=== PATIENT | male | born 1990 ===

== ENCOUNTER 2025-02-12 14:33 | Outpatient (AMB) | payer OTHER, SELFPAY ==
--- NOTE | 2025-02-12 14:41 | MHC.PC.OV ---
Vital Signs 02/12/25 14:42 Height 5 ft 9.25 in Weight 222 lb 6.4 oz BMI 32.6 BP 124/76 Blood Pressure Location Lt brachial Position Sitting Respiration 16 Pulse 92 Pulse Source Pulse Oximeter Temp 97.4 F Temp Source Oral Pulse Oximetry (%) 97 Oxygen Delivery Method Room Air Intake Visit Reasons: establish care Intake Note: Patient is a new patient here to establish care. Patient reports that he had no previous primary care physician; sought medical care at urgent care facility, when necessary. Medical records have not been requested and have not been received. Enchilada Maker Required: No Accompanied by: Spouse Allergies No Known Allergies Allergy (Verified 02/12/25 15:04) Medication List - Last Reconciled 02/12/25 by MARY Whitaker multivitamin 1 tab PO DAILY omega 7-vsx-vwr-fish oil 1,000 (120-180) mg (Fish Oil) 1 cap PO DAILY Tobacco use date assessed: 02/12/25 Dental Screening Dental Screen Date: 02/12/25 Did you have a dental visit in the last 12 months?: No Did you have a dental problem in the last 6 months where you did not have access to dental care?: No Was dental information given to patient?: Patient has dentist HPI establish care HPI Details The patient has a 34-year-old male presenting to establish care Previous PCP: None Last visit: urgent care, October-wheezing/respiratory illness Last PE:n/a Specialist: no OBGYN:n/a Past medical history: allergies, URI Medications: Family HX: mother asthma, Problem: Patient reports intermittent allergy/respiratory type symptoms Reports sneezing/coughing/wheezing/intermittent shortness of breath Reports going to urgent care and obtaining an rescue inhaler, Flonase nose spray, benzonatate, and Z-Portillo with positive effects Patient is presenting with partner who is concerned that the patient might have asthma or some form of allergies The patient is constantly clearing his throat and nostrils The patient is denying shortness of breath, chest pain, heart palpitation or dizziness He is denying abdominal pain/nausea or vomiting-reports on and off constipation History of hemorrhoids noted during colonoscopy Denies urinary symptoms PFSH Medical History Hemorrhoids Asthma Surgical History Hx of colonoscopy No pertinent past surgical history Family History Mother Asthma Social History Household Members: Spouse Housing: Apartment Alcohol intake: current Alcohol intake frequency: a few times a month Patient Tobacco Use Status: Never used Tobacco e-Cigarette/Vaping Use: Never Used service: No Current occupational status: employed Current occupation: Home improvement Cognitive needs: No Hearing needs: No Vision needs: No Questionnaire PHQ-9 Over the last 2 weeks, how often have you been bothered by any of the following problems? 1. Little interest or pleasure in doing things: more than half the days 2. Feeling down, depressed, or hopeless: not at all 3. Trouble falling or staying asleep, or sleeping too much: not at all 4. Feeling tired or having little energy: not at all 5. Poor appetite or overeating: not at all 6. Feeling bad about yourself - or that you are a failure or have let yourself or your family down: not at all 7. Trouble concentrating on things, such as reading the newspaper or watching television: not at all 8. Moving or speaking so slowly that other people could have noticed. Or the opposite - being so fidgety or restless that you have been moving around a lot more than usual: not at all 9. Thoughts that you would be better off or of hurting yourself in some way: not at all Total score: 2 Depression Screening Interpretation: Negative Depression Screening Done: Yes 78942 - PHQ-9 Billing: Yes Source: Developed by Drs. Jb Arias, Evon Nava, Ezio Patel and colleagues, with an educational ricardo from [employer]. Thrive Questionnaire Date Thrive assessed: 02/12/25 I am a: Patient What is your living situation today?: I have a steady place to live Within the past 12 months, did the food you bought not last and you didn't have the money to get more?: Never true Within the past 12 months, did you worry whether your food would run out before you got money to buy more?: Never true Do you have trouble paying for medicines?: No Do you have trouble getting transportation to medical appointments?: No Do you have trouble paying your heating and electricity bill?: No Do you have trouble taking care of your child, family member or friend?: No Do you have trouble with day-to-day activities such as bathing, preparing meals, shopping, managing finances, etc.?: No Are you currently unemployed and looking for a job?: Yes Are you interested in more education?: No Please select the resources that you would like help with: None Currently or been in a relationship where the following occur: No concerns reported THRIVE Score: 0 AUDIT C Alcohol Use Questionnaire (AUDIT-C) 1. How often do you have a drink containing alcohol?: Monthly or less 2. How many drinks containing alcohol do you have on a typical day when you are drinking?: 1 or 2 3. How often do you have six or more drinks on one occasion?: Never Total Score: 1 Score Reviewed/Action Taken: No SHELBY-7 AMB Questionnaire SHELBY-7 Date SHELBY - 7 assessed: 02/12/25 Feeling nervous, anxious, or on edge: 0 = Not at all Not being able to stop or control worryin = Not at all Worrying too much about different things: 0 = Not at all Trouble relaxin = Not at all Being so restless that it is hard to sit still: 0 = Not at all Becoming easily annoyed or irritable: 0 = Not at all Feeling afraid as if something awful might happen: 0 = Not at all Total SHELBY-7 score (0-4 normal; 5-9 mild; 10-14 moderate; 15-21 severe): 0 Source: Developed by Drs. Jb Arias, Evon Nava, Ezio Patel and colleagues, with an educational ricardo from [employer]. SHELBY-7 Assessment Billing SHELBY-7 Assessment Tool: SHELBY-7 Assessment 63937 Review of Systems Const Denies headache(s) Eyes Denies loss of vision ENT Denies vertigo, Denies dizziness, Denies headache(s) and Denies sore throat Card Denies chest pain, Denies leg edema and Denies lightheadedness Resp Denies cough, Denies hemoptysis and Denies wheezing GI Denies abdominal pain, Denies melena, Reports constipation, Denies diarrhea and Denies vomiting Denies dysuria, Denies urinary frequency and Denies urinary urgency Musc Denies arthralgias, Denies joint swelling, Denies numbness and Denies tingling Neuro Denies Abnormal speech present, Denies vertigo, Denies dizziness, Denies headache(s), Denies loss of vision, Denies numbness and Denies tingling Vinny/Lymph Denies easy bleeding and Denies easy bruising Aller/Immun Denies wheezing Physical exam (Primary Care) Vital Signs: Last Vital Signs Temp 97.4 F 02/12/25 14:42 Pulse 92 02/12/25 14:42 Resp 16 02/12/25 14:42 BP 124/76 02/12/25 14:42 Pulse Ox 97 02/12/25 14:42 Oxygen Delivery Method Room Air 02/12/25 14:42 BMI result Body Mass Index 32.6 Tobacco/Smoking Status: Tobacco use Status Tobacco use date assessed 02/12/25 02/12/25 15:00 Patient Tobacco Use Status Never used Tobacco 02/12/25 15:00 Tobacco use type 02/12/25 15:00 e-Cigarette/Vaping Use Never Used 02/12/25 15:00 PHQ-9: PHQ-9 Score PHQ-9: Total score 2 02/12/25 15:34 Depression Screening Interpretation: Negative Thrive Assessment: Date of Thrive Assessment Date Thrive assessed 02/12/25 02/12/25 14:45 Currently or been in a relationship where the following occur: No concerns reported Const General: healthy appearing, no acute distress, alert and awake Nutritional Appearance: well nourished Orientation/consciousness: oriented to person, oriented to place and oriented to time [facility] Ears: TM's normal bilaterally General nose exam: Abnormal mucous membranes and turbinates present and Nasal discharge present clear bilateral Throat: Yes posterior oropharynx normal Eyes Conjunctivae: conjunctivae normal Sclerae: sclerae normal Pupils: Equal, round and reactive pupils present Neck Neck: Yes no lymphadenopathy and Yes no JVD Thyroid: Thyroid normal Carotids: no bruits Resp Effort & Inspection: normal respiratory effort and not tachypneic Auscultation: no crackles, no rales, no rhonchi and no wheezes Cardio Rate: regular rate Rhythm: regular rhythm Heart sounds: no murmurs and normal S1 and S2 GI Palpation (GI): Soft to palpation, nontender, no hepatomegaly and no splenomegaly Auscultation: normal bowel sounds Skin General skin exam: no rashes or lesions noted and dry skin Neuro General: oriented to person, oriented to place and oriented to time Cranial nerves: Yes Equal, round and reactive pupils present Speech: No Abnormal speech present Gait exam (Neuro): Normal gait present Extrem Right upper extremity: full ROM Left upper extremity: full ROM Right lower extremity: full ROM; no edema Left lower extremity: full ROM; no edema Psych Mental Status: mental status grossly normal Speech and movement: Normal speech and movement present Affect: normal affect Attitude: cooperative Thought process: Normal thought process present Coding Level of Care Code New Pt Level 3 (24113) Diagnoses Seasonal allergic rhinitis, unspecified trigger J30.2 Allergic rhinitis trigger: unspecified Allergic rhinitis seasonality: seasonal Constipation, unspecified constipation type K59.00 Constipation type: unspecified constipation type Additional Codes SHELBY-7 Assessment Billing - SHELBY-7 Assessment Tool: SHELBY-7 Assessment 93316 ([id number]) PHQ-9 - 79576 - PHQ-9 Billing: Yes ([id number]) Time Spent (min) 33 Assessment & Plan Assessment & Plan (1) Allergic rhinitis: Code(s): J30.9 - Allergic rhinitis, unspecified Category: Medical Qualifiers: Allergic rhinitis trigger: unspecified Allergic rhinitis seasonality: seasonal Qualified Code(s): J30.2 - Other seasonal allergic rhinitis Plan: Limit exposure to allergens Air purifiers and dust filters Air conditioner in house, especially where sleeping Continue fluticasone propionate 50 mcg/actuation 2 sprays intranasally b.i.d.. Encouraged patient to use an antihistamine OTC for at least 2 weeks doing seasonal flare-ups and transition to as needed after (2) Constipation: Code(s): K59.00 - Constipation, unspecified Category: Medical Qualifiers: Constipation type: unspecified constipation type Qualified Code(s): K59.00 - Constipation, unspecified Plan: Encouraged to increase fluids intake and dietary fiber. Fiber gummies OTC were recommended. Orders: Orders Comprehensive [place]. Panel Fast Today Z00.00 - Encounter for general adult medical examination without abnormal findings TSH reflex Free T4 Today Z00.00 - Encounter for general adult medical examination without abnormal findings UA CC w/rflx Micro + Cult Today Z00.00 - Encounter for general adult medical examination without abnormal findings Glucose Fasting Today Z00.00 - Encounter for general adult medical examination without abnormal findings Complete Blood Count Auto Diff Today Z00.00 - Encounter for general adult medical examination without abnormal findings Lipid Panel Today Z00.00 - Encounter for general adult medical examination without abnormal findings Vitamin D 25-OH Total Today Z00.00 - Encounter for general adult medical examination without abnormal findings Medications: New fluticasone propionate 50 mcg/actuation administer into each nostril 2 sprays intranasal BID 16 grams 3RF albuterol sulfate 90 mcg/actuation 2 puffs inhalation Q4-6H PRN 8.5 grams 3RF shortness of breath or wheezing
[2025-02-12 14:42] VITALS: BP 124/76; PULSE 92; RESP 16; TEMP 36.3; O2SAT 97; BMI 32.6
== END 2025-02-12 15:41 | disposition home or self-care (01) ==
DX: J30.2 Other seasonal allergic rhinitis (principal); K59.00 Constipation, unspecified

== ENCOUNTER → 2025-02-12 14:33 | Outpatient (BNVA) | payer OTHER, SELFPAY | DX: Z76.89 Persons encountering health services in other specified circumstances (principal); J30.2 Other seasonal allergic rhinitis; K59.00 Constipation, unspecified | CPT/HCPCS: 96127 ==

== ENCOUNTER 2025-03-26 15:24 | Outpatient (AMB) | payer OTHER, SELFPAY ==
[2025-03-26 15:26] VITALS: BP 120/82; PULSE 94; RESP 16; TEMP 37.2; O2SAT 97; BMI 32.9
--- NOTE | 2025-03-26 15:26 | MHC.PC.OV ---
Vital Signs 03/26/25 15:26 Height 5 ft 9.25 in Weight 224 lb 9.6 oz BMI 32.9 BP 120/82 Blood Pressure Location Lt brachial Position Sitting Respiration 16 Pulse 94 Pulse Source Pulse Oximeter Temp 98.9 F Temp Source Oral Pulse Oximetry (%) 97 Oxygen Delivery Method Room Air Intake Visit Reasons: Annual Exam Research Phlebotomist Required: No Accompanied by: Self / Same As Patient Allergies No Known Allergies Allergy (Verified 03/26/25 15:52) Medication List - Last Reconciled 03/26/25 by MARY Whitaker albuterol sulfate 90 mcg/actuation 2 puffs inhalation Q4-6H PRN fluticasone propionate 50 mcg/actuation 2 sprays intranasal BID multivitamin 1 tab PO DAILY omega 9-ikr-tso-fish oil 1,000 (120-180) mg (Fish Oil) 1 cap PO DAILY Tobacco use date assessed: 03/26/25 Dental Screening Dental Screen Date: 03/26/25 Did you have a dental visit in the last 12 months?: No Did you have a dental problem in the last 6 months where you did not have access to dental care?: No Was dental information given to patient?: No HPI Annual Exam HPI Details Presenting for annual evaluation Dentist: no eval in a year -recommended Eye:no elba chai a year- recommended Snellen: Right: Left: Corrected vision:no STI screening: Colonoscopy:n/a Pap Smer:n/a PHQ-9: Flu: declines COVID: x2 Tdap:will check records, thinks that he had this last year Diet: regular Exercise: he goes to the gym on and off right otitis: small open area on TM. patient reports using q-tip regular, reports that he saw some yellowish drainage the other day. He also fell like he put in the q-tip in to far the other day. He is currently not feeling a ear pain. [facility] Medical History Hemorrhoids Asthma Surgical History Hx of colonoscopy No pertinent past surgical history Family History Mother Asthma Social History Household Members: Spouse Housing: Apartment Alcohol intake: current Alcohol intake frequency: a few times a month Patient Tobacco Use Status: Never used Tobacco e-Cigarette/Vaping Use: Never Used service: No Current occupational status: employed Current occupation: Home improvement Cognitive needs: No Hearing needs: No Vision needs: No Questionnaire PHQ-9 Over the last 2 weeks, how often have you been bothered by any of the following problems? 1. Little interest or pleasure in doing things: not at all 2. Feeling down, depressed, or hopeless: not at all 3. Trouble falling or staying asleep, or sleeping too much: not at all 4. Feeling tired or having little energy: not at all 5. Poor appetite or overeating: not at all 6. Feeling bad about yourself - or that you are a failure or have let yourself or your family down: not at all 7. Trouble concentrating on things, such as reading the newspaper or watching television: not at all 8. Moving or speaking so slowly that other people could have noticed. Or the opposite - being so fidgety or restless that you have been moving around a lot more than usual: not at all 9. Thoughts that you would be better off or of hurting yourself in some way: not at all Total score: 0 Depression Screening Interpretation: Negative Depression Screening Done: Yes Source: Developed by Drs. Jb Arias, Evon Nava, Ezio Patel and colleagues, with an educational ricardo from [employer]. Thrive Questionnaire Date Thrive assessed: 03/26/25 I am a: Patient What is your living situation today?: I have a steady place to live Within the past 12 months, did the food you bought not last and you didn't have the money to get more?: Never true Within the past 12 months, did you worry whether your food would run out before you got money to buy more?: Never true Do you have trouble paying for medicines?: No Do you have trouble getting transportation to medical appointments?: No Do you have trouble paying your heating and electricity bill?: No Do you have trouble taking care of your child, family member or friend?: No Do you have trouble with day-to-day activities such as bathing, preparing meals, shopping, managing finances, etc.?: No Are you currently unemployed and looking for a job?: Yes Are you interested in more education?: No Please select the resources that you would like help with: None Currently or been in a relationship where the following occur: No concerns reported THRIVE Score: 0 AUDIT C Alcohol Use Questionnaire (AUDIT-C) 1. How often do you have a drink containing alcohol?: 2-3 times a week 2. How many drinks containing alcohol do you have on a typical day when you are drinking?: 1 or 2 3. How often do you have six or more drinks on one occasion?: Never Total Score: 3 Score Reviewed/Action Taken: No SHELBY-7 AMB Questionnaire SHELBY-7 Date SHELBY - 7 assessed: 03/26/25 Feeling nervous, anxious, or on edge: 0 = Not at all Not being able to stop or control worryin = Not at all Worrying too much about different things: 0 = Not at all Trouble relaxin = Not at all Being so restless that it is hard to sit still: 0 = Not at all Becoming easily annoyed or irritable: 0 = Not at all Feeling afraid as if something awful might happen: 0 = Not at all Total SHELBY-7 score (0-4 normal; 5-9 mild; 10-14 moderate; 15-21 severe): 0 Source: Developed by Drs. Jb Arias, Evon Nava, Ezio Patel and colleagues, with an educational ricardo from [employer]. Review of Systems Const Denies headache(s) Eyes Denies loss of vision ENT Denies vertigo, Denies dizziness, Reports ear discharge (purulent recently-none now ), Denies otalgia, Denies headache(s), Denies hearing loss and Denies sore throat Card Denies chest pain, Denies leg edema and Denies lightheadedness Resp Denies cough, Denies hemoptysis and Denies wheezing GI Denies abdominal pain, Denies melena, Reports constipation (on and off), Denies diarrhea and Denies vomiting Denies dysuria, Denies urinary frequency and Denies urinary urgency Musc Denies arthralgias, Denies joint swelling, Denies numbness and Denies tingling Neuro Denies Abnormal speech present, Denies behavioral changes, Denies vertigo, Denies dizziness, Denies headache(s), Denies loss of vision, Denies memory loss, Denies numbness and Denies tingling Psych Denies anxiety, Denies behavioral changes, Denies depression, Denies memory loss and Denies panic attacks Vinny/Lymph Denies easy bleeding and Denies easy bruising Aller/Immun Denies wheezing Physical exam (Primary Care) Vital Signs: Last Vital Signs Temp 98.9 F 03/26/25 15:26 Pulse 94 03/26/25 15:26 Resp 16 03/26/25 15:26 BP 120/82 03/26/25 15:26 Pulse Ox 97 03/26/25 15:26 Oxygen Delivery Method Room Air 03/26/25 15:26 BMI result Body Mass Index 32.9 Tobacco/Smoking Status: Tobacco use Status Tobacco use date assessed 03/26/25 03/26/25 15:37 Patient Tobacco Use Status Never used Tobacco 03/26/25 15:37 Tobacco use type 02/12/25 15:40 e-Cigarette/Vaping Use Never Used 03/26/25 15:37 PHQ-9: PHQ-9 Score PHQ-9: Total score 0 03/26/25 15:57 Depression Screening Interpretation: Negative Thrive Assessment: Date of Thrive Assessment Date Thrive assessed 03/26/25 03/26/25 15:37 Currently or been in a relationship where the following occur: No concerns reported Const General: healthy appearing, no acute distress, alert and awake Nutritional Appearance: well nourished Orientation/consciousness: oriented to person, oriented to place and oriented to time [facility] Ears: TM normal on the left and TM abnormal with loss of landmarks on the right and perforated without discharge on the right General nose exam: Normal nasal mucous membranes and turbinates present Eyes Conjunctivae: conjunctivae normal Sclerae: sclerae normal Pupils: Equal, round and reactive pupils present Neck Neck: Yes no lymphadenopathy and Yes no JVD Thyroid: Thyroid normal Carotids: no bruits Resp Effort & Inspection: normal respiratory effort and not tachypneic Auscultation: no crackles, no rales, no rhonchi and no wheezes Cardio Rate: regular rate Rhythm: regular rhythm Heart sounds: no murmurs and normal S1 and S2 GI Palpation (GI): Soft to palpation, nontender, no hepatomegaly and no splenomegaly Auscultation: normal bowel sounds General: Yes no CVA tenderness Back/Spine/Pelvis Back: no CVA tenderness Skin General skin exam: no rashes or lesions noted and dry skin Neuro General: oriented to person, oriented to place, oriented to time and CN's II-XI intact bilaterally Cranial nerves: Yes Equal, round and reactive pupils present Speech: No Abnormal speech present Gait exam (Neuro): Normal gait present Motor exam (neuro): no tremor noted Deep tendon reflexes (DTR's): Right triceps reflex intensity grade: 2+, Left triceps reflex intensity grade: 2+, Rt Biceps (C5, C6): 2+, Left biceps reflex intensity grade: 2+, Right brachioradialis reflex intensity grade: 2+, Left brachioradialis reflex intensity grade: 2+, Right patellar reflex intensity grade: 2+ and Left patellar reflex intensity grade: 2+ Extrem Right upper extremity: full ROM Left upper extremity: full ROM Right lower extremity: full ROM; no edema Left lower extremity: full ROM; no edema Psych Mental Status: mental status grossly normal Speech and movement: Normal speech and movement present Affect: normal affect Attitude: cooperative Thought process: Normal thought process present Coding Level of Care Code Est Pt Prev Care 18-39y(18560) Diagnoses Annual physical exam Z00.00 Seasonal allergic rhinitis, unspecified trigger J30.2 Allergic rhinitis trigger: unspecified Allergic rhinitis seasonality: seasonal Constipation, unspecified constipation type K59.00 Constipation type: unspecified constipation type Right otitis media, unspecified otitis media type H66.91 Otitis media type: unspecified Laterality: right Time Spent (min) 37 Assessment & Plan Assessment & Plan (1) Annual physical exam: Code(s): Z00.00 - Encounter for general adult medical examination without abnormal findings Category: Medical Plan: Preventative guidelines reviewed with the patient. He is not up-to-date with eye exam or dental care. These cares were recommended to the patient. He did not complete ordered labs, reports that he will get these done jorge. He will check his records for tdap because he thinks that he had this within the year. He does not get the flu vaccine annually and had x2 covid vaccines. (2) Allergic rhinitis: Code(s): J30.9 - Allergic rhinitis, unspecified Category: Medical Qualifiers: Allergic rhinitis trigger: unspecified Allergic rhinitis seasonality: seasonal Qualified Code(s): J30.2 - Other seasonal allergic rhinitis Plan: Limit exposure to allergens Air purifiers and dust filters Air conditioner in house, especially where sleeping Continue fluticasone propionate 50 mcg/actuation 2 sprays intranasally b.i.d.. Encouraged patient to use an antihistamine OTC for at least 2 weeks doing seasonal flare-ups and transition to as needed after (3) Constipation: Code(s): K59.00 - Constipation, unspecified Category: Medical Qualifiers: Constipation type: unspecified constipation type Qualified Code(s): K59.00 - Constipation, unspecified Plan: Encouraged to increase fluids intake and dietary fiber. Fiber gummies OTC were recommended. (4) Otitis media: Code(s): H66.90 - Otitis media, unspecified, unspecified ear Category: Medical Qualifiers: Otitis media type: unspecified Laterality: right Qualified Code(s): H66.91 - Otitis media, unspecified, right ear Plan: A small open area noted on right TM. No drainage. Lost of cone of light. Reports frequent use of Q-tip with discomfort upon entering to deep. Reports recent purulent and drainage coming from right ear. Augmentin 875 to 1251 tab p.o. b.i.d. ordered. Plan Will schedule the patient for annual eval. Might see the patient sooner depending on lab results. Medications: New amoxicillin-pot clavulanate 875-125 mg 1 tab PO BID 10 tabs 0RF
== END 2025-03-26 16:18 | disposition home or self-care (01) ==
LOC: HO.HMCH 15:25
DX: Z00.00 Encounter for general adult medical examination without abnormal findings (principal); J30.2 Other seasonal allergic rhinitis; K59.00 Constipation, unspecified; H66.91 Otitis media, unspecified, right ear

== ENCOUNTER → 2025-03-26 15:24 | Outpatient (BNVA) | payer OTHER, SELFPAY | DX: Z13.89 Encounter for screening for other disorder (principal) ==